=== PATIENT | female | born 1960 | race Caucasian/White ===

== ENCOUNTER → 2017-07-26 | Outpatient (CLI) | payer OTHER ==
--- NOTE | 2017-07-26 11:33 | RADIOLOGY REPORT PS360 ---
CHEST(2 VIEWS-NOT PORTABLE) HISTORY: COUGH, CHEST TIGHTNESS ORDERING PHYSICIAN: RADHA BECK PATIENT AGE: 57 years COMPARISON: None available FINDINGS: The cardiomediastinal silhouette and pulmonary vascularity are within normal limits. The lungs are clear without infiltrates, suspicious nodules, or pleural effusions. No acute bony abnormalities. There is minimal blunting of the left CP angle nonspecific. IMPRESSION: 1. Minimal blunting left CP angle. 2. Otherwise negative chest
== END ==
LOC: RAD 10:49
DX: R05 Cough (principal); R07.89 Other chest pain